=== PATIENT | male | born 1980 ===

== ENCOUNTER → 2017-05-19 02:17 | Emergency (ER) | payer OTHER ==
[~2017-05-19 02:17] MED LIST: ALPRAZolam TAB* 0.5 MG PO ONE; Flumazenil* 0.1 MG/ML 5 ML MDV ONE; HYDROmorphone INJ* 2 MG/ML CARPUJECT SYRINGE IV SLOW PU ONE; Metoclopramide IV* 5 MG/ML 2 ML VIAL IV ONE; Midazolam concentrated* 5 MG/ML 1 ml VIAL ONE; Midazolam* 1 MG/ML 10 ML VIAL (10 MG) ONE; NS 0.9% 1000 ML* 1,000 ML IV ONE; Naloxone* 0.4 MG/ML 1 ML VIAL ONE; Oxymetazoline 0.05% NASAL SPR* 15 ML BTL BOTH NARES SCH; Tetan/Diph/Pertus SYR(Tdap)* 0.5 ML SYR(BOOSTRIX) use SYR IM ONE; fentaNYL* 50 MCG/ML 2 ML VIAL (100 MCG VIAL) ONE
[2017-05-19 04:51] LABS: Hematocrit 50 % (42-52); Mean Corpuscular HGB Conc 34 g/dl (31-36); Mean Corpuscular Hemoglobin 31 pg (27-31); Mean Corpuscular Volume 91 fL (80-94); Mean Platelet Volume 8 um3 (7.4-10.4); Platelet Count 275 10^3/ul (150-450); Red Blood Count 5.57 10^6/ul (4.0-5.4); Red Cell Distribution Width 15 % (10.5-15); White Blood Count 27.4 10^3/ul (3.5-10.8)
[2017-05-19 05:22] LABS: ABS Basophils 0 10^3/ul (0-0.2); ABS Eosinophils 0 10^3/ul (0-0.6); ABS Lymphocytes 1.1 10^3/ul (1.0-4.8); ABS Monocytes 1.8 10^3/ul (0-0.8); ABS Neutrophils 24.3 10^3/ul (1.5-7.7); ABS Nucleated RBC 0 10^3/ul; Eosinophil % 0.1 % (0-6); Lymphocyte % 4.1 % (25-47); Nucleated Red Blood Cells % 0
[2017-05-19 05:45] LABS: EGFR Non-African American 82.6 (>60)
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
[2017-05-19 06:50] VITALS: BP 131/92
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
--- NOTE | 2017-05-19 07:51 | RAD ---
INDICATION: Shoulder pain COMPARISON: None TECHNIQUE: Routine frontal, Y and axial views were obtained. FINDINGS: There is a fracture from the greater tuberosity. There is anterior dislocation. No other fractures are evident. Postreduction films are pending. IMPRESSION: ANTERIOR SHOULDER DISLOCATION WITH GREATER TUBEROSITY FRACTURE.
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
--- NOTE | 2017-05-19 07:52 | RAD ---
INDICATION: Shoulder dislocation-postreduction COMPARISON: Left shoulder same date TECHNIQUE: 2 views were obtained. FINDINGS: There is satisfactory reduction. The greater tuberosity fracture is better evaluated on the prereduction films. IMPRESSION: SATISFACTORY REDUCTION.
== END | disposition home or self-care (01) ==
LOC: ED 02:17
DX: S02.2XXA Fracture of nasal bones, initial encounter for closed fracture (principal); S42.92XA Fracture of left shoulder girdle, part unspecified, initial encounter for closed fracture; S00.81XA Abrasion of other part of head, initial encounter; R42 Dizziness and giddiness; Y09 Assault by unspecified means; Y92.9 Unspecified place or not applicable; Z87.891 Personal history of nicotine dependence
CPT/HCPCS: 23650; 36415; 70450; 70486; 80053; 80320; 85025; 90471; 90715; 96374; 96375; 99285; G0480; J2250; J2310; J3010